=== PATIENT | male | born 1965 | race African-American/Black ===

== ENCOUNTER → 2019-01-03 | Outpatient (CLI) | payer OTHER ==
[~2019-01-03] VITALS: Ht 185.4 cm; Wt 99.8 kg
[~2019-01-03] MED LIST: ALEVE220 MG PO
--- NOTE | 2019-01-05 16:06 | PATH ---
[facility] [address] [place] [address] PATHOLOGY RPT PROCEDURE Name: LYNDA PARRA Room #: REG [facility] Laure.#: [id number] ������������������ Admission: 01/03/19 ������������������ Date of : 67 Discharge: Report #: [id number] Path Case #: [id number] [facility] Accession Number: [id number] . 01 Material submitted: . sigmoid colon - BIOPSY POLYP AT SIGMOID COLON . 01 Clinical history: . Screening Colon polyp, diverticulosis, hemorrhoids . 02 Diagnosis: Polyp, at sigmoid colon, endoscopic biopsy: - Compatible with hyperplastic polyp and lymphoid aggregate. - Negative for dysplasia. . (IUV:mml; 01/05/2019) QLM/01/05/2019 . 02 Electronically signed: . Yancy Colorado MD, Pathologist NPI- [id number] . 01 Gross description: . The specimen is received in formalin, labeled "Lynda Parra, BX polyp at sigmoid colon" and consists of 2 fragments of verdugo tissue measuring 0.3 x 0.3 cm and 0.5 x 0.2 cm which are entirely submitted in A1. (SDY; 01/04/2019) SYU/SYU . 02 Pathologist provided ICD-10: K63.5 . 02 CPT . 146060 Specimen Comment: A courtesy copy of this report has been sent to Specimen Comment: [phone]. Specimen Comment: Report sent to Performed at: [address], [place] [id number] MD Jamey Richardson MD Phone: [phone] Performed at: [address] [id number] MD Yancy Colorado MD Phone: [phone]
== END | disposition home or self-care (01) ==
LOC: GI 08:26
DX: Z12.11 Encounter for screening for malignant neoplasm of colon (principal); K63.5 Polyp of colon; K57.30 Diverticulosis of large intestine without perforation or abscess without bleeding; K64.8 Other hemorrhoids; Z98.890 Other specified postprocedural states; Z79.899 Other long term (current) drug therapy
CPT/HCPCS: 62110; 62900

== ENCOUNTER → 2021-09-02 | Outpatient (CLI) | payer OTHER | LOC: MRI 08:07 | PROVIDERS: ATTEND Family Medicine | DX: M75.81 Other shoulder lesions, right shoulder (principal); M25.511 Pain in right shoulder ==